=== PATIENT | male | born 1985 | race African-American/Black ===

== ENCOUNTER 2017-11-11 09:10 | Emergency (ER) | payer MEDICAID ==
[~2017-11-11] VITALS: Ht 177.8 cm; Wt 73.0 kg
[2017-11-11] MEDS ORDERED: ACETAMINOPHEN 325MG TABLET PO ONE (14:45)
[2017-11-11 15:16] VITALS: BP 125/75
== END 2017-11-11 15:17 | disposition home or self-care (01) ==
LOC: ER 09:27
DX: M79.642 Pain in left hand (principal); M79.641 Pain in right hand; F12.10 Cannabis abuse, uncomplicated
CPT/HCPCS: 99282